=== PATIENT | female | born 1950 | race Hispanic/Latino ===

== ENCOUNTER → 2018-06-15 | Outpatient (CLI) | payer MEDICARE ==
--- NOTE | 2018-06-15 12:46 | Diagnostic Imaging Report ---
EXAMINATION: Esophagram. CLINICAL HISTORY: Choking with liquids. COMPARISON: None. DISCUSSION: The patient was given air crystals, thick barium, and thin barium to drink in upright and prone positions. Multiple images of the hypopharynx, esophagus, and proximal stomach were obtained. The valleculae and piriform sinuses are normal. Prominent anterior osteophyte at C5-C6, which mildly indents the posterior aspect of the esophagus. The esophagus shows no mucosal abnormality or stricture. There is moderate delay in gastric esophageal sphincter relaxation with swallows, with associated tertiary contractions in the distal esophagus during multiple swallows. No focal mucosal irregularity or filling defect are identified. A small hiatal hernia is documented. Minimal gastroesophageal reflux in the distal esophagus was noted intermittently.. The visualized portions of the stomach fundus are unremarkable. IMPRESSION: 1. Small hiatal hernia with minimal gastroesophageal reflux in the distal esophagus, which is only seen intermittently. 2. Moderate delay in gastroesophageal sphincter relaxation with swallows, with associated tertiary contractions in the distal esophagus intermittently. No focal mucosal irregularity or filling defect are identified. 3. Prominent anterior osteophyte at C5-C6, which mildly indents the posterior aspect of the esophagus. The rest of the cervical esophagus and hypopharynx are unremarkable. Signed by: Dr. Raymon Fountain M.D. on 06/15/2018 12:42 PM
== END ==
LOC: DX 10:20
PROVIDERS: ATTEND Internal Medicine
DX: R13.12 Dysphagia, oropharyngeal phase (principal)
CPT/HCPCS: 74220